=== PATIENT | male | born 1990 | race African-American/Black ===

== ENCOUNTER → 2020-01-06 | Outpatient (CLI) | payer OTHER | LOC: EDBD 12-29 07:30 → COL.RAD 12-29 07:30 | DX: R55 Syncope and collapse (principal) | CPT/HCPCS: A9585 ==

== ENCOUNTER → 2020-02-02 | Outpatient (CLI) | payer OTHER | LOC: COL.CARD 09:12 → EDBD 10:00 | DX: R55 Syncope and collapse (principal) ==